=== PATIENT | female | born 1990 | race Caucasian/White ===

== ENCOUNTER 2020-08-24 21:08 | Emergency (ER) | payer OTHER ==
[~2020-08-24] VITALS: Ht 157.5 cm; Wt 52.2 kg
== END 2020-08-25 00:24 | disposition home or self-care (01) ==
LOC: ER 21:08
DX: S13.4XXA Sprain of ligaments of cervical spine, initial encounter (principal); S00.83XA Contusion of other part of head, initial encounter; V49.9XXA Car occupant (driver) (passenger) injured in unspecified traffic accident, initial encounter; Y93.89 Activity, other specified; Y92.488 Other paved roadways as the place of occurrence of the external cause; Y99.8 Other external cause status; Z03.818 Encounter for observation for suspected exposure to other biological agents ruled out

== ENCOUNTER 2023-03-03 10:26 | Outpatient (CLI) | payer OTHER | END 2023-03-03 10:28 | disposition home or self-care (01) | LOC: SONOGRAMA 10:26 | PROVIDERS: ATTEND Pathology Anatomic Pathology & Clinical Pathology | DX: D34 Benign neoplasm of thyroid gland (principal); E04.9 Nontoxic goiter, unspecified ==

== ENCOUNTER 2023-03-08 10:52 | Emergency (ER) | payer OTHER ==
[~2023-03-08] VITALS: Ht 154.9 cm; Wt 48.1 kg
[2023-03-08] MEDS ORDERED: PEPCID AC20 MG (11:15)
== END 2023-03-08 16:54 | disposition home or self-care (01) ==
LOC: ER 10:52
PROVIDERS: General Practice
DX: R13.10 Dysphagia, unspecified (principal)

== ENCOUNTER 2023-05-04 19:38 | Emergency (ER) | payer OTHER ==
[~2023-05-04] VITALS: Ht 154.9 cm; Wt 48.5 kg
[~2023-05-04 19:38] MED LIST: PEPCID AC20 MG
[2023-05-04 21:28] LABS: HEMATOCRIT 36.5 % (36.0-45.00); HEMOGLOBIN 11.9 g/dL (12.0-15.00); MEAN CELL VOLUME 79.4 fL (80.00-100.00); MEAN CORPUSCULAR HGB CONC 32.7 g/dl (32.0-36.0); PLATELET COUNT 251 K/uL (150-450); RED BLOOD COUNT 4.59 M/uL (4.00-6.00); RED CELL DISTRIBUTION WIDTH 15.1 % (11.5-14.5)
[2023-05-04 21:45] LABS: INR 0.94; PARTIAL THROMBOPLASTIN TIME 27.8 SECONDS (22.0-34.0)
[2023-05-04 21:50] LABS: PROTHROMBIN TIME 9.9 SECONDS (9.0-11.5)
[2023-05-04 21:51] LABS: ALBUMIN 3.5 gm/dL (3.4-5.0); BILIRUBIN TOTAL 1.03 mg/dL (0.3-1.2); CALCIUM 8.9 mg/dL (8.5-10.1); CREATININE SERUM 0.65 mg/dL (0.55-1.02); GFR 105.63; GLOBULINA 3.6 G/DL (2.4-3.5); POTASSIUM 3.45 mEq/L (3.5-5.1); TOTAL PROTEIN 7.1 gm/dL (6.4-8.2)
[2023-05-04 22:18] LABS: URINE APPEARANCE Clear; URINE BILIRRUBIN Negative (NEGATIVE); URINE BLOOD Negative; URINE COLOR Yellow; URINE GLUCOSE Negative (NEGATIVE); URINE LEUKOCYTE Trace; URINE NITRATE Negative; URINE PROTEIN Negative (NEGATIVE); URINE UROBILINOGEN 0.2 E.U./dl
[2023-05-04 22:21] LABS: URINE BACTERIA 214.1 uL (0.0-1933); URINE EPITHELIAL CELLS 2.6 uL (0.0-38.8); URINE WBC 9.8 uL (0.0-23.2)
[2023-05-04 22:41] LABS: URINE RBC 0.1 uL (0.0-20.8)
== END 2023-05-04 23:17 | disposition home or self-care (01) ==
LOC: ER 19:38
PROVIDERS: General Practice
DX: Z34.90 Encounter for supervision of normal pregnancy, unspecified, unspecified trimester (principal)

== ENCOUNTER 2023-10-13 12:26 | Outpatient (CLI) | payer OTHER | END 2023-10-13 12:56 | disposition home or self-care (01) | LOC: NST 12:26 | PROVIDERS: ATTEND Obstetrics & Gynecology Gynecology | DX: Z34.82 Encounter for supervision of other normal pregnancy, second trimester (principal) ==

== ENCOUNTER 2024-01-01 12:45 | Inpatient (IN) | payer OTHER ==
[~2024-01-01] VITALS: Ht 154.9 cm; Wt 64.4 kg
[2024-01-21] MEDS ORDERED: OXYTOCIN 500 ML IV ONE (10:15)
[2024-01-21] MEDS ORDERED: PRENATAL TABLE1 EAC1 PO (10:17)
[2024-01-21] MEDS ORDERED: VALACYCLOVIR500 MG PO (10:17)
[2024-01-21] MEDS ORDERED: AMPICILLIN SODIUM 2,000 MG VIAL IV ONE (10:30)
[2024-01-21 11:20] LABS: HEMATOCRIT 38.3 % (36.0-45.00); HEMOGLOBIN 13.1 g/dL (12.0-15.00); MEAN CELL VOLUME 90.5 fL (80.00-100.00); MEAN CORPUSCULAR HGB CONC 34.3 g/dl (32.0-36.0); PLATELET COUNT 183 K/uL (150-450); RED BLOOD COUNT 4.24 M/uL (4.00-6.00); RED CELL DISTRIBUTION WIDTH 14.6 % (11.5-14.5)
[2024-01-21 11:43] LABS: ALBUMIN 2.8 gm/dL (3.4-5.0); BILIRUBIN TOTAL 0.88 mg/dL (0.3-1.2); CALCIUM 8.9 mg/dL (8.5-10.1); CREATININE SERUM 0.51 mg/dL (0.55-1.02); GFR 139.75; GLOBULINA 3.4 G/DL (2.4-3.5); POTASSIUM 3.95 mEq/L (3.5-5.1); TOTAL PROTEIN 6.2 gm/dL (6.4-8.2)
[2024-01-21 12:04] LABS: INR < 0.93; PARTIAL THROMBOPLASTIN TIME 28.3 SECONDS (22.0-34.0); PROTHROMBIN TIME 9.3 SECONDS (9.0-11.5)
[2024-01-21] MEDS ORDERED: AMPICILLIN SODIUM 1,000 MG VIAL IV SCH (13:00)
[2024-01-21] MEDS ORDERED: MORPHINE SULFATE 4 MG/ML VIAL IV SCH (13:30)
[2024-01-21] MEDS ORDERED: NALOXONE HCL 0.4 MG/ML AMPUL IV ONE (15:30)
[2024-01-21] MEDS ORDERED: ERYTHROMYCIN BASE 1 GM TUBE OP ONE (16:00)
[2024-01-21] MEDS ORDERED: LIDOCAINE HCL 1% 10ML VIAL IJ ONE (16:30)
[2024-01-21] MEDS ORDERED: CHLORHEXIDINE GLUCONATE 120 ML BOTTLE TOP ONE (16:30)
[2024-01-21] MEDS ORDERED: OXYTOCIN 1,000 ML IV SCH (17:30)
[2024-01-21] MEDS ORDERED: IBUprofen 400 MG TABLET PO PRN (17:30)
[2024-01-21] MEDS ORDERED: OxyCODONE HCL/APAP UD (PERCOCET) PO PRN (17:30)
[2024-01-22] MEDS ORDERED: BENZOCAINE/MENTHOL 90 ML BOTTLE TOP SCH (08:00)
[2024-01-22 09:23] LABS: HEMOGLOBIN 11.4 g/dL (12.0-15.00); MEAN CELL VOLUME 90.9 fL (80.00-100.00); MEAN CORPUSCULAR HEMOGLOBIN 30.6 pg (27.00-32.0); MEAN CORPUSCULAR HGB CONC 33.6 g/dl (32.0-36.0); PLATELET COUNT 176 K/uL (150-450); RED BLOOD COUNT 3.74 M/uL (4.00-6.00); RED CELL DISTRIBUTION WIDTH 14.5 % (11.5-14.5)
== END 2024-01-23 14:38 | disposition home or self-care (01) | DRG 807 ==
LOC: OB/GYN 01-08 12:45 → LDR 01-21 08:27 → OB/GYN 01-21 18:26
PROVIDERS: Obstetrics & Gynecology Maternal & Fetal Medicine; ADMIT Obstetrics & Gynecology; ATTEND Obstetrics & Gynecology
PROC: 10E0XZZ Delivery of Products of Conception, External Approach (ICD-10-PCS; principal; 2024-01-21)
PROC: 0KQM0ZZ Repair Perineum Muscle, Open Approach (ICD-10-PCS; 2024-01-21)
PROC: 0UQG7ZZ Repair Vagina, Via Natural or Artificial Opening (ICD-10-PCS; 2024-01-21)
PROC: 4A1HXCZ Monitoring of Products of Conception, Cardiac Rate, External Approach (ICD-10-PCS; 2024-01-21)
DX: O70.1 Second degree perineal laceration during delivery (principal); Z37.0 Single live birth; Z3A.41 41 weeks gestation of pregnancy; Z20.822 Contact with and (suspected) exposure to COVID-19

== ENCOUNTER 2024-01-08 15:56 | Outpatient (CLI) | payer OTHER | END 2024-01-08 17:22 | disposition home or self-care (01) | LOC: NST 15:56 | PROVIDERS: ATTEND Obstetrics & Gynecology | DX: Z34.83 Encounter for supervision of other normal pregnancy, third trimester (principal) ==

== ENCOUNTER 2024-01-13 15:16 | Outpatient (CLI) | payer OTHER | END 2024-01-13 15:45 | disposition home or self-care (01) | LOC: NST 15:16 | PROVIDERS: ATTEND Obstetrics & Gynecology | DX: Z34.83 Encounter for supervision of other normal pregnancy, third trimester (principal) ==

== ENCOUNTER 2024-01-16 08:58 | Outpatient (CLI) | payer OTHER | END 2024-01-16 09:52 | disposition home or self-care (01) | LOC: NST 08:58 | PROVIDERS: ATTEND Obstetrics & Gynecology Gynecology | DX: Z34.83 Encounter for supervision of other normal pregnancy, third trimester (principal) ==

== ENCOUNTER 2024-01-19 14:55 | Outpatient (CLI) | payer OTHER | END 2024-01-19 16:04 | disposition home or self-care (01) | LOC: NST 14:55 | PROVIDERS: ATTEND Obstetrics & Gynecology Maternal & Fetal Medicine | DX: Z34.83 Encounter for supervision of other normal pregnancy, third trimester (principal) ==

== ENCOUNTER 2025-04-01 08:57 | Outpatient (CLI) | payer OTHER ==
[~2025-04-01 08:57] MED LIST changes: +PRENATAL TABLE1 EAC1 PO; +VALACYCLOVIR500 MG PO
== END 2025-04-01 09:03 | disposition home or self-care (01) ==
LOC: SONOGRAMA 08:57
PROVIDERS: ATTEND Obstetrics & Gynecology
DX: R10.2 Pelvic and perineal pain (principal); R10.9 Unspecified abdominal pain

== ENCOUNTER 2025-06-19 20:56 | Outpatient (CLI) | payer OTHER | END 2025-06-19 21:00 | disposition home or self-care (01) | LOC: NST 20:56 | PROVIDERS: ATTEND Obstetrics & Gynecology | DX: Z34.83 Encounter for supervision of other normal pregnancy, third trimester (principal) ==